=== PATIENT | female | born 1975 | race Caucasian/White ===

== ENCOUNTER 2024-02-04 08:58 | Outpatient (CLI) | payer OTHER | END 2024-02-04 08:59 | disposition home or self-care (01) | LOC: BICMAMMO 08:58 | PROVIDERS: ATTEND Obstetrics & Gynecology | DX: N63.22 Unspecified lump in the left breast, upper inner quadrant (principal); R92.1 Mammographic calcification found on diagnostic imaging of breast; R59.0 Localized enlarged lymph nodes | CPT/HCPCS: 77066; G0279 ==